=== PATIENT | female | born 1995 | race American Indian/Alaskan Native ===

== ENCOUNTER 2021-08-10 07:23 | Emergency (ER) | payer SELFPAY ==
[2021-08-10 09:17] LABS: Basophils % (Auto) 0.2 % (0.0-1.8); Hematocrit 37.7 % (30.3-42.9); Lymphocytes # (Auto) 0.9 K/mm3 (1.2-5.4); Lymphocytes % (Auto) 23.4 % (13.4-35.0); Mean Corpuscular HGB Conc 32 % (30-34); Mean Corpuscular Volume 80 fl (79-97); Monocytes # (Auto) 0.1 K/mm3 (0.0-0.8); Monocytes % (Auto) 3.9 % (0.0-7.3); Platelet Count 258 K/mm3 (140-440); Red Blood Count 4.69 M/mm3 (3.65-5.03); Red Cell Distribution Width 16.5 % (13.2-15.2)
[2021-08-10 09:57] LABS: Alanine Aminotransferase 14 units/L (7-56); Albumin 4.2 g/dL (3.9-5); Blood Urea Nitrogen 7 mg/dL (7-17); Calcium 9.1 mg/dL (8.4-10.2); Hemolysis Index 8
[2021-08-10 09:59] LABS: BUN/Creatinine Ratio 10
[2021-08-10] MEDS ORDERED: ONDANSETRON 4 MG ODT TAB PO ONE (11:06)
[2021-08-10] MEDS ORDERED: ACETAMINOPHEN 500 MG TAB PO STA ×2 (11:06→18:47)
--- NOTE | 2021-08-10 11:06 | Emergency Department Report ---
ED General Adult HPI - General Chief complaint: Nausea/Vomiting/Diarrhea Stated complaint: DIARRHEA/VOMITING Time Seen by Provider: 08/10/21 10:09 Source: patient Mode of arrival: Ambulatory Limitations: No Limitations - History of Present Illness Initial comments: 26-year-old -[place] female patient presents with complaints of left- sided chest pain and hemoptysis x3 days. She states she began having [id number] symptoms approximately 1 week ago with loss of taste and smell, cough, and nausea/vomiting/diarrhea. She denies any abdominal pain or fever. She rates her current chest pain as a 6/10 in severity and describes it as stabbing. Pain worsens with deep inhalation. She denies any hormone use, recent long travel, history of DVT/PE/cancer, or leg pain/swelling. Patient has not been tested for COVID-19 and denies having the COVID-19 vaccination. She denies any shortness of breath. - Related Data Previous Rx's Medication Instructions Recorded Last Taken Type Azithromycin [Zithromax Z-DARYL] 0 mg PO DAILY #6 tab 08/10/21 Unknown Rx Dexamethasone [Decadron] 6 mg PO QDAY 3 Days #3 tablet 08/10/21 Unknown Rx Naproxen [Naprosyn] 500 mg PO BID PRN #14 tablet 08/10/21 Unknown Rx Allergies Allergy/AdvReac Type Severity Reaction Status Date / Time No Known Allergies Allergy Verified 08/10/21 07:55 ED Review of Systems ROS: Stated complaint: DIARRHEA/VOMITING Other details as noted in HPI ED Past Medical Hx - Medications Home Medications: Home Medications Medication Instructions Recorded Confirmed Last Taken Type Azithromycin [Zithromax Z-DARYL] 0 mg PO DAILY #6 tab 08/10/21 Unknown Rx Dexamethasone [Decadron] 6 mg PO QDAY 3 Days #3 tablet 08/10/21 Unknown Rx Naproxen [Naprosyn] 500 mg PO BID PRN #14 tablet 08/10/21 Unknown Rx ED Physical Exam - General Limitations: No Limitations General appearance: alert, in no apparent distress - Head Head exam: Present: atraumatic, normocephalic - Eye Eye exam: Present: normal appearance. Absent: scleral icterus - Respiratory Respiratory exam: Present: normal lung sounds bilaterally. Absent: respiratory distress - Cardiovascular Cardiovascular Exam: Present: tachycardia. Absent: normal rhythm - GI/Abdominal GI/Abdominal exam: Present: soft. Absent: distended, tenderness - Extremities Exam Extremities exam: Absent: calf tenderness - Neurological Exam Neurological exam: Present: alert, oriented X3 - Psychiatric Psychiatric exam: Present: normal affect, normal mood - Skin Skin exam: Present: warm, dry, intact, normal color. Absent: rash ED Course Vital Signs 08/10/21 07:51 Temperature 100.4 F H Pulse Rate 125 H Respiratory 20 Rate Blood Pressure 110/67 [Left] O2 Sat by Pulse 98 Oximetry ED Medical Decision Making - Lab Data Result diagrams: 08/10/21 08:58 08/10/21 08:58 Lab Results 08/10/21 08/10/21 08/10/21 Range/Units 08:58 08:58 08:58 WBC 3.7 L (4.5-11.0) K/mm3 RBC 4.69 (3.65-5.03) M/mm3 Hgb 12.0 (10.1-14.3) gm/dl Hct 37.7 (30.3-42.9) % MCV 80 (79-97) fl MCH 26 L (28-32) pg MCHC 32 (30-34) % RDW 16.5 H (13.2-15.2) % Plt Count 258 (140-440) K/mm3 Lymph % (Auto) 23.4 (13.4-35.0) % [place] % (Auto) 3.9 (0.0-7.3) % Eos % (Auto) 0.0 (0.0-4.3) % Baso % (Auto) 0.2 (0.0-1.8) % Lymph # (Auto) 0.9 L (1.2-5.4) K/mm3 [place] # (Auto) 0.1 (0.0-0.8) K/mm3 Eos # (Auto) 0.0 (0.0-0.4) K/mm3 Baso # (Auto) 0.0 (0.0-0.1) K/mm3 Seg Neutrophils % 72.5 H (40.0-70.0) % Seg Neutrophils # 2.7 (1.8-7.7) K/mm3 D-Dimer (0-234) ng/mlDDU Sodium 135 L (137-145) mmol/L Potassium 3.8 (3.6-5.0) mmol/L Chloride 99.2 (98-107) mmol/L Carbon Dioxide 24 (22-30) mmol/L Anion Gap 16 mmol/L BUN 7 (7-17) mg/dL Creatinine 0.7 (0.6-1.2) mg/dL Estimated GFR > 60 ml/min BUN/Creatinine Ratio 10 % Glucose 103 H (65-100) mg/dL Calcium 9.1 (8.4-10.2) mg/dL Total Bilirubin 0.20 (0.1-1.2) mg/dL AST 33 (5-40) units/L ALT 14 (7-56) units/L Alkaline Phosphatase 56 (35-129) units/L Total Protein 8.5 H (6.3-8.2) g/dL Albumin 4.2 (3.9-5) g/dL Albumin/Globulin Ratio 1.0 % HCG, Qual Negative (Negative) 08/10/21 Range/Units 10:50 WBC (4.5-11.0) K/mm3 RBC (3.65-5.03) M/mm3 Hgb (10.1-14.3) gm/dl Hct (30.3-42.9) % MCV (79-97) fl MCH (28-32) pg MCHC (30-34) % RDW (13.2-15.2) % Plt Count (140-440) K/mm3 Lymph % (Auto) (13.4-35.0) % [place] % (Auto) (0.0-7.3) % Eos % (Auto) (0.0-4.3) % Baso % (Auto) (0.0-1.8) % Lymph # (Auto) (1.2-5.4) K/mm3 [place] # (Auto) (0.0-0.8) K/mm3 Eos # (Auto) (0.0-0.4) K/mm3 Baso # (Auto) (0.0-0.1) K/mm3 Seg Neutrophils % (40.0-70.0) % Seg Neutrophils # (1.8-7.7) K/mm3 D-Dimer 354.95 H (0-234) ng/mlDDU Sodium (137-145) mmol/L Potassium (3.6-5.0) mmol/L Chloride (98-107) mmol/L Carbon Dioxide (22-30) mmol/L Anion Gap mmol/L BUN (7-17) mg/dL Creatinine (0.6-1.2) mg/dL Estimated GFR ml/min BUN/Creatinine Ratio % Glucose (65-100) mg/dL Calcium (8.4-10.2) mg/dL Total Bilirubin (0.1-1.2) mg/dL AST (5-40) units/L ALT (7-56) units/L Alkaline Phosphatase (35-129) units/L Total Protein (6.3-8.2) g/dL Albumin (3.9-5) g/dL Albumin/Globulin Ratio % HCG, Qual (Negative) - Radiology Data Radiology results: report reviewed CTA CHEST WITH CONTRAST INDICATION / CLINICAL INFORMATION: Covid-19 positive, hemoptysis, elevated D- dimer. TECHNIQUE: Axial CT images were obtained through the chest after injection of IV contrast. 3 plane MIP and/or 3D reconstructions were produced. All CT scans at this location are performed using CT dose reduction for ALARA by means of automated exposure control. COMPARISON: None available. FINDINGS: PULMONARY ARTERIES: No central or segmental pulmonary embolus. THORACIC AORTA: No significant abnormality. HEART: No significant abnormality. ADENOPATHY: Presumed reactive lymphadenopathy of the mediastinum and bilateral hilar regions. LUNGS/PLEURA: Patchy peripheral and basilar predominant airspace consolidation and groundglass opacities . No pleural effusion. No pneumothorax. ADDITIONAL FINDINGS: None. UPPER ABDOMEN: No acute findings. SKELETAL STRUCTURES: No significant osseous abnormality. IMPRESSION: 1. No evidence for pulmonary embolism. 2. Patchy peripheral and basilar predominant airspace disease, in keeping with reported history of COVID. - Medical Decision Making 26-year-old -[place] female patient presents with complaints of left- sided chest pain and hemoptysis x3 days. She states she began having [id number] symptoms approximately 1 week ago with loss of taste and smell, cough, and nausea/vomiting/diarrhea. She denies any abdominal pain or fever. She rates her current chest pain as a 6/10 in severity and describes it as stabbing. Pain worsens with deep inhalation. She denies any hormone use, recent long travel, history of DVT/PE/cancer, or leg pain/swelling. Patient has not been tested for COVID-19 and denies having the COVID-19 vaccination. She denies any shortness of breath. Chest x-ray is normal. Given elevated heart rate with hemoptysis and Covid symptoms, dimer was performed and is positive. CTA chest is negative for PE, however shows bibasilar disease consistent with Covid infection. Will cover for Covid pneumonia with azithromycin. She is afebrile and nontachycardic. She is stable for discharge home. She continues to deny any shortness of breath. Discussed in great detail signs and symptoms that should prompt immediate return to the emergency department in detail patient verbalizes understanding. Patient to follow-up with primary care in 3 to 5 days. Critical care attestation.: If time is entered above; I have spent that time in minutes in the direct care of this critically ill patient, excluding procedure time. ED Disposition Clinical Impression: COVID-19, Community acquired pneumonia Disposition: HOME / SELF CARE / HOMELESS Is pt being admited?: No Condition: Stable Instructions: Bacterial Pneumonia (ED), Community-Acquired Pneumonia, Adult, Prevent the Spread of COVID-19 if You Are Sick - CDC, COVID-19 Prescriptions: Dexamethasone [Decadron] 6 mg PO QDAY 3 Days #3 tablet Naproxen [Naprosyn] 500 mg PO BID PRN #14 tablet PRN Reason: pain Azithromycin [Zithromax Z-DARYL] 0 mg PO DAILY #6 tab Referrals: PRIMARY CARE, [Primary Care Provider] - 3-5 Days [facility] [Provider Group] - 3-5 Days
--- NOTE | 2021-08-10 11:18 | XRay Report ---
XR chest routine 2V INDICATION / CLINICAL INFORMATION: SOB. COMPARISON: None available. FINDINGS: SUPPORT DEVICES: None. HEART /PULMONARY VASCULATURE: No significant abnormality. LUNGS / PLEURA: No significant pulmonary or pleural abnormality. No pneumothorax. ADDITIONAL FINDINGS: No significant additional findings. IMPRESSION: 1. No acute findings. Signer Name: Edmar Cooper MD Signed: 08/10/2021 11:13 AM Workstation Name: [id number]
--- NOTE | 2021-08-10 18:33 | Cat Scan Report ---
CTA CHEST WITH CONTRAST INDICATION / CLINICAL INFORMATION: Covid-19 positive, hemoptysis, elevated D-dimer. TECHNIQUE: Axial CT images were obtained through the chest after injection of IV contrast. 3 plane PR P and/or 3D reconstructions were produced. All CT scans at this location are performed using CT dose reduction for ALARA by means of automated exposure control. COMPARISON: None available. FINDINGS: PULMONARY ARTERIES: No central or segmental pulmonary embolus. THORACIC AORTA: No significant abnormality. HEART: No significant abnormality. ADENOPATHY: Presumed reactive lymphadenopathy of the mediastinum and bilateral hilar regions. LUNGS/PLEURA: Patchy peripheral and basilar predominant airspace consolidation and groundglass opacit ies . No pleural effusion. No pneumothorax. ADDITIONAL FINDINGS: None. UPPER ABDOMEN: No acute findings. SKELETAL STRUCTURES: No significant osseous abnormality. IMPRESSION: 1. No evidence for pulmonary embolism. 2. Patchy peripheral and basilar predominant airspace disease, in keeping with reported history of CO VID. Signer Name: Edmar Cooper MD Signed: 08/10/2021 6:29 PM Workstation Name: [id number]
[2021-08-10 18:43] VITALS: BP 117/60
[2021-08-10] MEDS ORDERED: IBUPROFEN 800 MG TAB PO STA (18:47)
[2021-08-10] MEDS ORDERED: predniSONE 20 MG TAB PO NR (19:00)
== END 2021-08-10 19:18 | disposition home or self-care (01) ==
LOC: ED 07:23
DX: U07.1 COVID-19 (principal); J12.82 Pneumonia due to coronavirus disease 2019; Z79.899 Other long term (current) drug therapy
CPT/HCPCS: 36415; 71046; 71275; 80053; 84703; 85025; 85379; 99284; J7512; Q9967